=== PATIENT | female | born 1960 | race African-American/Black ===

== ENCOUNTER → 2016-07-12 | Outpatient (CLI) | payer BC ==
[~2016-07-12] MED LIST: NO HOME MEDICATIONS
== END ==
LOC: MC.RAD 13:00
DX: Z12.31 Encounter for screening mammogram for malignant neoplasm of breast (principal)

== ENCOUNTER → 2017-12-26 | Outpatient (CLI) | payer BC | LOC: MC.RAD 11:00 | DX: Z12.31 Encounter for screening mammogram for malignant neoplasm of breast (principal) ==